=== PATIENT | female | born 1980 ===

== ENCOUNTER → 2017-11-17 | Outpatient (REF) ==
--- NOTE | 2017-11-17 14:15 | Diagnostic Imaging Report ---
INDICATION: Fall with wrist pain. Three views were obtained. FINDINGS: The alignment is normal. There is no fracture or dislocation. Soft tissues are unremarkable. IMPRESSION: No acute fracture or dislocation. Dictated by: Dictated on workstation # [id number]
== END | disposition home or self-care (01) ==
LOC: OCC 13:52
PROVIDERS: ATTEND Nurse Practitioner Family
CPT/HCPCS: 73110